=== PATIENT | female | born 1950 | race Caucasian/White ===

== ENCOUNTER 2024-11-17 08:46 | Emergency (ER) | payer MEDICARE, OTHER, SELFPAY ==
--- NOTE | ~2024-11-17 | XR_ITS ---
XR thoracic spine 3V Indication: low back pain x 6 days, no injury, no surgery Comparison: None Findings: Mild dextroconvex scoliosis. Moderate loss of vertebral height throughout. Moderate osteopenia. There are multiple remote compression fractures with kyphosis, no acute fracture or subluxation. Moderate to severe loss of disc height throughout. Soft tissues unremarkable Impression: No acute abnormality. Reviewed, dictated and finalized at location P. Impression: No acute abnormality.
--- NOTE | 2024-11-17 08:48 | ED.BACK ---
HPI - Back Pain/Injury General Chief Complaint: Back Pain/Injury Stated Complaint: back pain Source: patient and RN notes reviewed Mode of arrival: ambulatory Limitations: no limitations History of Present Illness HPI Narrative: Patient is a 74-year-old female who presents to the [facility] with complaints mid back pain. Patient reports history of compressed disc in her thoracic spine, causing chronic pain. Patient denies recent injury. States that she initially thought her pain was muscular, so she had taken Tylenol #3, aleve, used heat/ ice for her without much relief. She denies numbness. Denies dysfunction of bladder or bowel. Denies any chest pain, shortness of breath, recent fever, nausea. Related Data Home Medications ?Medication ?Instructions ?Recorded ?Confirmed ?Last Taken ?Type albuterol sulfate 90 mcg/actuation inhalation 09/25/23 07/02/24 Unknown History aerosol inhaler alendronate 70 mg tablet mg PO 09/25/23 07/02/24 Unknown History Xfactor [facility] 04/24/24 07/02/24 Unknown History cholecalciferol (vitamin D3) 125 125 mcg PO DAILY 04/24/24 07/02/24 Unknown History mcg (5,000 unit) capsule plexus nerve [facility] 04/24/24 07/02/24 Unknown History plexus probio5 [facility] 04/24/24 07/02/24 Unknown History Allergies Allergy/AdvReac Type Severity Reaction Status Date / Time No Known Allergies Allergy Mild Verified 11/17/24 08:55 Review of Systems Review of Systems: CONSTITUTIONAL: Denies fever, chills, or sweats. EYES: Denies visual changes, redness, or discharge. ENT: Denies otalgia and sore throat CARDIOVASCULAR: Denies chest pain, palpitations, or edema. RESPIRATORY: Denies cough or dyspnea. GASTROINTESTINAL: Denies abdominal pain, nausea, vomiting, or diarrhea. GENITOURINARY: Denies dysuria or hematuria. SKIN: Denies rash or itching. MUSCULOSKELETAL: Reports back pain. NEUROLOGIC: Denies headache, numbness, or weakness. Pertinent positives per HPI. [facility] Past Medical History Medical History Osteoporosis Depression Hyperlipidemia Hyperthyroidism Obstructive sleep apnea COPD (chronic obstructive pulmonary disease) Social History Social History Smoking status: Never smoker Alcohol intake: current Do You Feel Safe in your Home?: Yes Lack of Transportation: No Lack of Food: Never True Current Housing: I Have Housing Concerned About Future Housing: No Difficulty Paying Gas/Electric Bills: No Difficulty Paying for Meds: No Currently Unemployed: No Education: Associate Degree Difficulty w/ Childcare or Family Care: No Comments At the time of my signature, I reviewed and agree with the nursing past medical, surgical, social, and family history. There is no relevant family history pertinent to the patient complaint. Exam Narrative: GENERAL: This is a well-nourished, well-developed patient, in no apparent distress. HEAD: normocephalic, atraumatic. EYES: Sclera clear/white. Vision is grossly intact. EARS: External ears normal. Hearing grossly intact. NOSE: External nose normal with no obvious nasal discharge, nares without redness, no rhinorrhea. THROAT: Mucous membranes moist, posterior pharynx clear. NECK: Neck supple, non-tender without lymphadenopathy, masses or thyromegaly. CARDIOVASCULAR: Regular rate and rhythm without murmurs, gallops, or rubs. RESPIRATORY: Clear to auscultation. Breath sounds equal bilaterally. No wheezes, rales, or rhonchi. GASTROINTESTINAL: Abdomen soft, non-tender, nondistended. Bowel sounds are active. No hepato-splenomegaly, or palpable masses. No guarding. SKIN: warm, intact with no suspicious lesions or rash, good texture and turgor. NEURO: awake, alert, and oriented to person, place and time. There were no obvious focal neurologic abnormalities. EXTREMITIES: No clubbing, cyanosis, or edema. No joint tenderness, effusion, or edema noted. BACK: Tenderness in the paraspinous muscles in the thoracic area. No tenderness over the spinous processes of the thoracic vertebrae. LEGS: Normal strength including dorsi-flexion and plantar flexion of the feet. Negative bilateral straight leg raising, normal and symmetrical knee and ankle reflexes. Course Course Level of Care: Express Care Visit Vital Signs Vital signs: Vital Signs Temperature 98.8 F 11/17/24 08:59 Pulse Rate 72 11/17/24 08:59 Respiratory Rate 16 11/17/24 08:59 Blood Pressure 92/81 L 11/17/24 08:59 Pulse Oximetry 100 11/17/24 08:59 Temperature 98.8 F 11/17/24 08:59 Pulse Rate 72 11/17/24 08:59 Respiratory Rate 16 11/17/24 08:59 Blood Pressure 92/81 L 11/17/24 08:59 Pulse Oximetry 100 11/17/24 08:59 Reviewed MDM - Back Pain/Injury MDM Narrative Medical decision making narrative: Use the RICE method at home. Take medication as prescribed. Follow-up with specialist as soon as possible. If her symptoms worsen, you develop numbness or dysfunction of bladder or bowel, go to the ED immediately. Differential Diagnosis Differential diagnosis: Likely thoracic back pain, discitis and other (thoracic strain, compression fracture, osteoarthritis) Imaging Data Attestation: I personally reviewed and interpreted this imaging study as follows: Radiologist's impression: [facility] [address] [place] [address] [place] [address] XRay Report Signed Patient: Dixie Cohn : 1950 MR#: [id number] Age: 74 Acct:[id number] [facility]: [facility] ADM Date: 11/17/[address]: Ordering Physician: Char Kumar APRN Date of Service: 11/17/24 Procedure(s): XR thoracic spine 3V Accession Number(s): [id number] cc: Char Kumar APRN; Adela, Fiordaliza Robert APRN~ XR thoracic spine 3V Indication: low back pain x 6 days, no injury, no surgery Comparison: None Findings: Mild dextroconvex scoliosis. Moderate loss of vertebral height throughout. Moderate osteopenia. There are multiple remote compression fractures with kyphosis, no acute fracture or subluxation. Moderate to severe loss of disc height throughout. Soft tissues unremarkable Impression: No acute abnormality. Reviewed, dictated and finalized at location . Please be advised this is a medical document. It is intended for [id number] communication. It is written in medical language and may contain unfamiliar abbreviations or verbiage. Medical documents are intended to carry relevant information, facts as evident, and the clinical opinion of the practitioner at the time of the encounter. This report may have been done utilizing a voice recognition system. Attempts have been made to correct errors. However, there may be uncorrected grammatical, spelling, and recognition errors present. The file time of this note does not necessarily represent the time of service. Dictated By: Himanshu De La Vega MD 11/17/24916 Signed By: <Electronically signed by Himanshu De La Vega MD in OV> 11/17/24917 Critical Care Time Critical Care Time Critical Care Time: No Discharge Plan Discharge Clinical Impression: Chronic thoracic back pain Qualifiers: Back pain laterality: midline Qualified Code(s): M54.6 - Pain in thoracic spine Patient Disposition: Home Condition: Stable Instructions: Back Pain (ED), P.R.I.C.E. Treatment (ED), Thoracic Back Strain (ED) Additional Instructions: Use the RICE method at home. Take medication as prescribed. Follow-up with specialist as soon as possible. If her symptoms worsen, you develop numbness or dysfunction of bladder or bowel, go to the ED immediately. Patient Language: Senegalese Prescriptions: New dexamethasone 4 mg tablet 4 mg PO DAILY 5 Days Qty: 5 0RF naproxen 500 mg tablet 500 mg PO BID PRN (Reason: pain) Qty: 20 0RF cyclobenzaprine 5 mg tablet 5 mg PO HS PRN (Reason: muscle spasm) Qty: 20 0RF No Action plexus probio5 [facility] cholecalciferol (vitamin D3) 125 mcg (5,000 unit) capsule 125 mcg PO DAILY plexus nerve [facility] Xfactor [facility] albuterol sulfate 90 mcg/actuation HFA aerosol inhaler inhalation alendronate 70 mg tablet PO Follow-up/Referrals: Adela,Fiordaliza Robert, CORPORATE REAL ESTATE MANAGER [Primary Care Provider, Unknown] Time of Disposition: 09:34
[2024-11-17 08:59] VITALS: BP 92/81; PULSE 72; RESP 16; TEMP 37.1; O2SAT 100
== END 2024-11-17 09:40 | disposition home or self-care (01) ==
PROVIDERS: Emergency Provider Nurse Practitioner
DX: M54.6 Pain in thoracic spine (principal); R78.5 Finding of other psychotropic drug in blood; E05.90 Thyrotoxicosis, unspecified without thyrotoxic crisis or storm; J44.9 Chronic obstructive pulmonary disease, unspecified; M81.0 Age-related osteoporosis without current pathological fracture
CPT/HCPCS: 72072; 99213; G0463

== ENCOUNTER 2025-01-02 13:12 | Outpatient (CLI) | payer MEDICARE, OTHER, SELFPAY ==
--- NOTE | ~2025-01-02 | XR_ITS ---
XR lumbar spine 6V w bending Indication: BACK PAIN Comparison: None Findings: There are multiple remote appearing superior endplate fracture throughout the lumbar spine. Grade 1 retrolisthesis of T12 on L1, L1 on L2 and L2 on L3. There is no subluxation with flexion and extension. Moderate osteopenia is noted. Moderate to severe loss of disc height throughout. Soft tissues unremarkable Impression: No acute abnormality. Reviewed, dictated and finalized at location P. NING CENTER INSTRUCTOR Impression: No acute abnormality.
--- NOTE | ~2025-01-02 | XR_ITS ---
EXAMINATION: Scoliosis survey: DATE: 01/02/2025 INDICATION: Back pain. TECHNIQUE: Standing AP view of thoracolumbar spine were obtained. COMPARISON: None. FINDINGS: Diffuse osteopenia of bones. Compression fractures of multiple thoracic and lumbar vertebrae are noted of undetermined age. Mild scoliosis of thoracolumbar spine is noted with curvature convex to the right in the lower lumbar region. The scoliosis measures approximately 13 degrees. IMPRESSION: 1. Mild scoliosis of thoracolumbar spine curvature convex to the right in the thoracic region. 2. Diffuse osteopenia. Multiple compression fractures of thoracolumbar vertebrae of undetermined age. Please correlate with DEXA densitometry. Further evaluation with nuclear bone scan or MRI may be considered if localized symptoms are significant. Reviewed, dictated and finalized at location T. ACCOUNTANT IMPRESSION: 1. Mild scoliosis of thoracolumbar spine curvature convex to the right in the t horacic region. 2. Diffuse osteopenia. Multiple compression fractures of thoracolumbar vertebra e of undetermined age. Please correlate with DEXA densitometry. Further evaluat ion with nuclear bone scan or MRI may be considered if localized symptoms are s ignificant.
--- NOTE | ~2025-01-02 | CT_ITS ---
EXAMINATION: CT thoracic lumbar wo con, 01/02/2025 14:00 CAT HOOKER HISTORY: WEDGE COMPRESSION FX T11-T12 COMPARISON: No comparisons available. Technique: Axial images were obtained of the spine per protocol. One or more of the following dose reduction techniques were used: automated exposure control, adjustment of the mA and/or kV according to patient size, use of iterative reconstruction technique. Unless otherwise stated, incidental findings do not require dedicated follow up imaging Findings: Kyphosis is noted with remote appearing compression fractures of T7-T8 and T9 with loss of height 50%. There is a remote appearing superior endplate fracture of T12 and L1 with remote appearing superior endplate fracture of T4. There are remote appearing compression fractures of L2-L3 and L5 loss of height at L5 50%, No acute fracture or subluxation is identified. There is grade 1 anterolisthesis of L4 on L5. There is severe loss of disc height at T6-7, T7-8, T8-9 and T9-10 and L5-S1 with moderate canal and foraminal stenosis. Soft tissues unremarkable Impression: Multiple remote appearing fractures detailed above. No acute fracture or subluxation. If pain persists MRI is suggested to evaluate for bone edema Reviewed, dictated and finalized at location P. HOOKER Impression: Multiple remote appearing fractures detailed above. No acute fracture or sublux ation. If pain persists MRI is suggested to evaluate for bone edema
--- NOTE | ~2025-01-02 | XR_ITS ---
EXAMINATION: XR pelvis 1-2V, 01/02/2025 14:15 TRACTOR MECHANIC APPRENTICE HISTORY: BACK PAIN COMPARISON: No comparisons available. Findings: No acute fracture or malalignment. Severe bilateral degenerative changes Soft tissues unremarkable. Impression: No acute fracture or malalignment. Reviewed, dictated and finalized at location P. TOR MECHANIC APPRENTICE Impression: No acute fracture or malalignment.
--- NOTE | ~2025-01-02 | XR_ITS ---
XR cervical spine min 6V Indication: BACK PAIN Comparison: None Findings: No fracture identified, no subluxation with flexion and extension The disc heights are intact. Soft tissues unremarkable Impression: No acute abnormality. Reviewed, dictated and finalized at location P. RER STEEL HANDLING Impression: No acute abnormality.
--- NOTE | ~2025-01-02 | CT_ITS ---
EXAMINATION: CT cervical spine wo con DATE: 01/02/2025 14:07 INDICATION: Thoracic compression fractures TECHNIQUE: Computed tomography (CT) of the cervical spine was performed without intravenous contrast. Automated exposure control and iterative reconstruction technique were employed. The dose-length product was 636.79 mGy-cm. COMPARISON: None FINDINGS: Alignment is normal. Moderate osteoarthritis at the atlantoaxial articulation. Cervical vertebral body heights are normal. Chronic T4 superior endplate compression fracture with superimposed Schmorl's node. No acute fracture. Moderate disc height loss at C6-C7 and mild disc height loss at C4-C5 and C5-C6, each level with associated moderate bilateral uncovertebral osteoarthritis. Small posterior disc osteophyte complexes result in mild central canal stenosis at C5-C6 and C6-C7. Moderate facet osteoarthritis on the right at C7-T1. Otherwise mild bilateral multilevel cervical facet osteoarthritis. Mild neural foraminal stenosis bilaterally at C4-C5, C5-C6 and C6-C7. Likely benign 8 mm hypodense left thyroid nodule. Cervical soft tissues are otherwise unremarkable. Moderate biapical pleural-parenchymal scarring. IMPRESSION: 1. Mild to moderate lower cervical predominant spondylosis. 2. Chronic appearing T4 compression fracture. No acute osseous abnormality. Reviewed, dictated and finalized at location A. GE POSTER
== END 2025-01-02 13:13 | disposition home or self-care (01) ==
PROVIDERS: Visit Provider Specialist
DX: M41.9 Scoliosis, unspecified (principal); M85.88 Other specified disorders of bone density and structure, other site; M47.892 Other spondylosis, cervical region
CPT/HCPCS: 72052; 72082; 72114; 72125; 72128; 72131; 72170